=== PATIENT | male | born 1945 | race Two or more races ===

== ENCOUNTER 2022-05-21 23:41 | Inpatient (IN) | payer MEDICARE, BC ==
[~2022-05-21] VITALS: Ht 177.8 cm; Wt 83.6 kg
--- NOTE | 2022-05-22 | NUR ---
Patient seen by doctor Billy. Olamide Clinton/Willem Dumont
--- NOTE | 2022-05-22 00:20 | NUR ---
Patient out for CT scan Shukri
[2022-05-22 00:34] LABS: CARBON DIOXIDE 29 mmol/L (21-32); CHLORIDE 103 mmol/L (98-107); CREATININE 0.9 mg/dL (0.6-1.3); GLUCOSE 102 mg/dL (74-106); POTASSIUM 4.5 mmol/L (3.5-5.1); UREA NITROGEN, BLOOD 21 mg/dL (7-18)
[2022-05-22 00:37] LABS: HEMATOCRIT 39.8 % (36.7-47.1); MEAN CORPUSCULAR HEMOGLOBIN 29.3 uug (23.8-33.4); MEAN CORPUSCULAR VOLUME 87.5 fL (73.0-96.2); PLATELET COUNT (AUTO) 217 K/uL (152-348)
[2022-05-22 00:43] LABS: ALANINE AMINOTRANSFERASE 50 U/L (16-63); ALKALINE PHOSPHATASE 46 U/L (50-136); ASPARTATE AMINOTRANSFERASE 37 U/L (15-37); BILIRUBIN,DIRECT 0.1 mg/dL (0.0-0.2); BILIRUBIN,TOTAL 0.6 mg/dL (0.2-1.0); TOTAL PROTEIN, SERUM 7.5 g/dL (6.4-8.2)
[2022-05-22] MEDS ORDERED: IV NORMAL SALINE 1000 ML BAG IV ONE (01:00)
--- NOTE | 2022-05-22 01:05 | NUR ---
Dr. Cervantes on panel call with Fran Johnson NP.
--- NOTE | 2022-05-22 01:10 | NUR ---
Pt out of ER for CT.
[2022-05-22] MEDS ORDERED: REMEDY ESSENTIAL ZINC PASTE 113 GM TP PRN (01:15)
[2022-05-22] MEDS ORDERED: MAGNESIUM HYDROXIDE 30 ML LIQUID UDC PO PRN (01:15)
[2022-05-22] MEDS ORDERED: ONDANSETRON 4 MG/2 ML VIAL IV PRN (01:15)
[2022-05-22] MEDS ORDERED: ACETAMINOPHEN 325 MG TABLET PO PRN (01:15)
[2022-05-22 01:47] LABS: THYROID STIMULATING HORMONE 3.16 mIU/mL (0.358-3.740)
--- NOTE | 2022-05-22 04:26 | NUR ---
Patient ambulated with steady gait. Independently goes to the restroom. Umm/Sia
--- NOTE | 2022-05-22 07:10 | NUR ---
Recieved pt in bed, resting, denies CP and SOB.
[2022-05-22 07:47] LABS: HEMATOCRIT 41.8 % (36.7-47.1); MEAN CORPUSCULAR HEMOGLOBIN 29.4 uug (23.8-33.4); MEAN CORPUSCULAR VOLUME 88.7 fL (73.0-96.2); PLATELET COUNT (AUTO) 207 K/uL (152-348)
[2022-05-22 07:50] LABS: CREATININE 0.8 mg/dL (0.6-1.3); MAGNESIUM 1.9 mg/dL (1.8-2.4); PHOSPHOROUS 3.7 mg/dL (2.5-4.9)
[2022-05-22 08:00] VITALS: BP 160/82
[2022-05-22] MEDS: PANTOPRAZOLE SODIUM 40 MG VIAL IV SCH (08:51)
[2022-05-22] MEDS: ENOXAPARIN SODIUM 40 MG/0.4 ML DISP.SYRIN SQ SCH (08:52)
[2022-05-22] MEDS ORDERED: ATOR10TA PO (10:06)
[2022-05-22] MEDS ORDERED: LISI-782 PO (10:06)
[2022-05-22] MEDS ORDERED: SERT50TA PO (10:06)
[2022-05-22] MEDS: IV NS 1000 ML 1,000 ML IV PRN ×2 (10:41→23:11)
[2022-05-22 12:00] VITALS: BP 136/71
[2022-05-22 13:30] VITALS: BP_SYST 113; BP_SYST 123; BP_DIAS 65; BP_DIAS 67
[2022-05-22 16:05] VITALS: BP 133/70
[2022-05-22 20:11] VITALS: BP 133/66
--- NOTE | 2022-05-22 22:04 | NUR ---
Patient refused CT scan, to be attempted in the morning. [place]
--- NOTE | 2022-05-22 22:07 | NUR ---
radiology called for CT at this time; pt is sleepingand would like not to be bothered; CT chest will be done in AM
[2022-05-23 00:28] VITALS: BP 127/64
[2022-05-23 04:34] VITALS: BP 122/60
[2022-05-23 06:36] LABS: HEMATOCRIT 38.4 % (36.7-47.1); MEAN CORPUSCULAR HEMOGLOBIN 29.6 uug (23.8-33.4); PLATELET COUNT (AUTO) 200 K/uL (152-348)
[2022-05-23 07:00] LABS: ALANINE AMINOTRANSFERASE 32 U/L (16-63); ALKALINE PHOSPHATASE 42 U/L (50-136); ASPARTATE AMINOTRANSFERASE 22 U/L (15-37); BILIRUBIN,TOTAL 0.6 mg/dL (0.2-1.0); CARBON DIOXIDE 28 mmol/L (21-32); CHLORIDE 108 mmol/L (98-107); CREATININE 0.8 mg/dL (0.6-1.3); GLUCOSE 93 mg/dL (74-106); MAGNESIUM 1.9 mg/dL (1.8-2.4); POTASSIUM 4.1 mmol/L (3.5-5.1); TOTAL PROTEIN, SERUM 6.8 g/dL (6.4-8.2); UREA NITROGEN, BLOOD 12 mg/dL (7-18)
--- NOTE | 2022-05-23 08:00 | NUR ---
RECEIVED PT ON BED EATING BFAST. NO ACUTE DISTRESS NOTED. NO PAIN. NO SOB NOTED. AFEBRILE. SPOUSE AT BEDSIDE. PT STATES "HES MUCH FEELING BETTER NOW". WILL CONT TO MONITOR
[2022-05-23] MEDS: PANTOPRAZOLE SODIUM 40 MG VIAL IV SCH (09:19)
[2022-05-23] MEDS: ENOXAPARIN SODIUM 40 MG/0.4 ML DISP.SYRIN SQ SCH (09:20)
--- NOTE | 2022-05-23 10:00 | NUR ---
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
--- NOTE | 2022-05-23 11:00 | NUR ---
PT IS CLEARED FOR DISCHARGE.
[2022-05-23] MEDS ORDERED: LEVE1000 PO (11:50)
[2022-05-23 12:03] VITALS: BP 125/72
[2022-05-23] MEDS ORDERED: levETIRAcetam IV 1,000 MG in IV DEXTROSE 5% 100 ML IV ONE (13:00)
--- NOTE | 2022-05-23 14:30 | NUR ---
PT IS DISCHARGE. PT WILL GO BACK HOME. PT SPOUSE WILL DRIVE PT. ALL BELONGINGS ACCOUNTED FOR. IV ACCESS WAS REMOVED. PT IS AMBULATORY. HEMODYNAMICALLY STABLE. V/S WNL.
[2022-05-24] MEDS ORDERED: PANTOPRAZOLE SODIUM 40 MG TABLET.DR PO SCH (07:00)
== END 2022-05-23 14:30 | disposition home or self-care (01) | DRG 74 ==
LOC: ER 05-22 → TELE3 05-22 07:52
PROVIDERS: ADMIT Nurse Practitioner Family; ATTEND Nurse Practitioner Family
DX: G90.8 Other disorders of autonomic nervous system (principal); E78.5 Hyperlipidemia, unspecified; Z87.891 Personal history of nicotine dependence; Z20.822 Contact with and (suspected) exposure to COVID-19; R56.9 Unspecified convulsions; I10 Essential (primary) hypertension; Z87.820 Personal history of traumatic brain injury; E86.0 Dehydration
CPT/HCPCS: 36415; 70450; 71045; 71250; 72125; 83735; 84100; 84443; 84484; 85025; 85730; 93005; 93307; 93880; A4663; C9113; G0378; J1650; J1953; J7040

== ENCOUNTER 2024-05-30 11:57 | Emergency (ER) | payer MEDICARE, BC ==
[~2024-05-30] VITALS: Ht 177.8 cm; Wt 92.5 kg
[~2024-05-30 11:57] MED LIST: ATOR10TA PO; LEVE1000 PO; LISI-782 PO; SERT50TA PO
[2024-05-30] MEDS ORDERED: BRIV100T PO (12:10)
[2024-05-30 13:07] LABS: DIFFERENTIAL COMMENT 0; EOSINOPHILS # (AUTO) 0.1 K/uL (0.0-0.7); EOSINOPHILS % (AUTO) 2.5 % (0.0-7.0); HEMATOCRIT 41.6 % (36.7-47.1); HEMOGLOBIN 13.8 g/dL (12.5-16.3); LYMPHOCYTES # (AUTO) 1.6 K/uL (0.8-4.8); LYMPHOCYTES % (AUTO) 28.6 % (20.5-51.5); MEAN CORPUSCULAR HEMOGLOBIN 29.3 uug (23.8-33.4); MEAN CORPUSCULAR HGB CONC 33 g/dL (32.5-36.3); MEAN CORPUSCULAR VOLUME 88.5 fL (73.0-96.2); MONOCYTES # (AUTO) 0.5 K/uL (0.1-1.30); MONOCYTES % (AUTO) 9.5 % (0.0-11.0); NEUTROPHILS # (AUTO) 3.4 K/uL (1.8-8.9); NEUTROPHILS % (AUTO) 59.4 % (38.5-71.5); PLATELET COUNT (AUTO) 216 K/uL (152-348); RED CELL DISTRIBUTION WIDTH 14.4 % (12.1-16.2); WHITE BLOOD COUNT (AUTO) 5.7 K/uL (3.6-10.2)
[2024-05-30 13:09] LABS: CARBON DIOXIDE 27 mmol/L (21-32); CHLORIDE 105 mmol/L (98-107); CREATININE 0.8 mg/dL (0.6-1.3); GLUCOSE 103 mg/dL (74-106); POTASSIUM 4.3 mmol/L (3.5-5.1); SODIUM SERUM 141 mmol/L (136-145); UREA NITROGEN, BLOOD 16 mg/dL (7-18)
[2024-05-30 13:39] LABS: MAGNESIUM 2.2 mg/dL (1.8-2.4)
[2024-05-30 14:35] VITALS: BP 141/70; TEMP 97.5; O2SAT 98
== END 2024-05-30 14:36 | disposition home or self-care (01) ==
LOC: ER 11:57
DX: S00.83XA Contusion of other part of head, initial encounter (principal); E78.5 Hyperlipidemia, unspecified; K21.9 Gastro-esophageal reflux disease without esophagitis; Z79.899 Other long term (current) drug therapy; W01.0XXA Fall on same level from slipping, tripping and stumbling without subsequent striking against object, initial encounter; Y93.01 Activity, walking, marching and hiking; Y92.89 Other specified places as the place of occurrence of the external cause; Y99.8 Other external cause status
CPT/HCPCS: 36415; 70450; 83735; 84484; 85025; 85730; A4606; A4663